=== PATIENT | female | born 1955 | race Caucasian/White ===

== ENCOUNTER 2017-05-30 09:39 | Emergency (ER) | payer MEDICARE ==
[~2017-05-30] VITALS: Ht 152.4 cm; Wt 45.0 kg
[~2017-05-30 09:39] MED LIST: AMLO5 PO; CLON1TAB PO; FERR325T PO; FLUD.1 PO; FURO20 PO; IBUP800T23 PO; METH500T3 PO; METO50TA PO; PROZ20CA11 PO
[2017-05-30 09:41] VITALS: BP 129/64; PULSE 80; RESP 20; TEMP 98.3; O2SAT 95
[2017-05-30] MEDS ORDERED: AMLO10TA2 PO (09:56)
[2017-05-30] MEDS ORDERED: PROZ40CA PO (09:56)
[2017-05-30] MEDS ORDERED: CLON1TAB PO (09:56)
[2017-05-30] MEDS ORDERED: METO50TA11 PO (09:56)
[2017-05-30] MEDS ORDERED: MORPHINE SULFATE 4 MG/ML INJ IV PUSH ONE (10:00)
[2017-05-30] MEDS ORDERED: SODIUM CHLORID 0.9% 500 ML INJ 500 ML IV ONE (10:00)
[2017-05-30] MEDS ORDERED: ONDANSETRON HCL 4 MG/2 ML VIAL IV PUSH ONE (10:00)
--- NOTE | 2017-05-30 10:07 | PD ---
HPI Chief Complaint: Fall Time Seen by Provider: 09:55 Travel History International Travel<30 days: No Contact w/Intl Traveler<30days: No Traveled to known affect area: No History of Present Illness HPI The patient is a 61-year-old female who presents emergency department for headache after fall. The patient has a history of vertigo and was taking a bath yesterday when she became dizzy and fell backwards, striking her head on the porcelain toilet. The patient states there was no loss of consciousness. She denies any nausea or vomiting. She does complain of a posterior headache. She denies any neck pain or back pain. She denies any focal deficits. She denies any change in vision. The patient denies taking any anticoagulants. Symptoms are mild to moderate, exacerbated after falling, and there are no current alleviating factors. PFSH Past Medical History Hx Anticoagulant Therapy: No Asthma: No Blood Disorders: Yes (ANEMIA) Anxiety: Yes Depression: Yes Heart Rhythm Problems: Yes (FLUTTERING IN CHEST) Cardiovascular Problems: Yes High Cholesterol: No Chemotherapy: No Chest Pain: No Congestive Heart Failure: No COPD: No Cerebrovascular Accident: No Diabetes: No Diminished Hearing: No Endocrine: No Gastrointestinal Disorders: Yes (ULCER) Genitourinary: Yes (INCONTINENCE) Hypertension: Yes Immune Disorder: No Musculoskeletal: Yes (BULGING DISC L5-S1-LEFT LEG WEAKNESS) Neurologic: Yes (PINCHED NERVE) Psychiatric: Yes Reproductive: No Respiratory: No Radiation Therapy: No Sleep Apnea: No Thyroid Disease: No Ulcer: Yes Tetanus Vaccination: < 5 Years ?: Not Menopausal: Yes Tubal Ligation: Yes Past Surgical History Gynecologic Surgery: Yes (TUBAL) Hysterectomy: Yes Tonsillectomy: Yes Other Surgery: Yes (TUBAL, PARTIAL HYSTER, TONSILLS OUT) Social History Alcohol Use: Yes (OCC) Tobacco Use: No Substance Use: No Allergies-Medications (Allergen,Severity, Reaction): Coded Allergies: No Known Allergies (Unverified , 05/30/17) Reported Meds & Prescriptions Reported Meds & Active Scripts Active Reported Clonazepam 1 Mg Tab 1 Mg PO TID Prozac (Fluoxetine HCl) 40 Mg Cap 40 Mg PO DAILY Amlodipine (Amlodipine Besylate) 10 Mg Tab 10 Mg PO DAILY Metoprolol Succinate ER 24 HR (Metoprolol Succinate) 50 Mg Tab 50 Mg PO DAILY Review of Systems Except as stated in HPI: all other systems reviewed are Neg General / Constitutional: No: Fever Eyes: No: Diploplia, Blurred Vision, Photophobia, Visual changes HENT: Positive: Headaches, No: Neck Pain Neurologic: Positive: Headache, No: Focal Abnormalities, Change in Mentation Physical Exam Narrative GENERAL: Awake, alert, nontoxic-appearing 61-year-old female who appears her stated age and is in no acute respiratory distress. SKIN: Focused skin assessment warm/dry. HEAD: Atraumatic. Normocephalic. No visible cephalohematoma EYES: Pupils equal and round. 4 mm bilateral and reactive. EOMs are intact. Patient is able to see fingers at a distance of 2 feet without difficulty. ENT: No nasal bleeding or discharge. Mucous membranes pink and moist. NECK: Trachea midline. No JVD. No tenderness of the cervical vertebrae. Full range of motion with flexion, extension, and rotation. GASTROINTESTINAL: Abdomen soft, non-tender, nondistended. Back: No tenderness over the thoracic or lumbar vertebrae. MUSCULOSKELETAL: No obvious deformities. No clubbing. No cyanosis. No edema. NEUROLOGICAL: Awake and alert. No obvious cranial nerve deficits. Motor grossly within normal limits. Normal speech. Nonfocal. Oriented 4. Follows commands without difficulty. PSYCHIATRIC: Appropriate mood and affect; insight and judgment normal. Data Data Last Documented VS Vital Signs Date Time Temp Pulse Resp B/P (MAP) Pulse Ox O2 Delivery O2 Flow Rate FiO2 05/30/17 10:10 71 17 134/68 (90) 98 Room Air 05/30/17 09:[address] Brain W/O Iv Contrast(Rout) (05/30/17 ) Morphine Inj (Morphine Inj) (05/30/17 10:00) Ondansetron Inj (Zofran Inj) (05/30/17 10:00) Sodium Chlorid 0.9% 500 Ml Inj (Ns 500 M (05/30/17 10:00) MDM Medical Decision Making Medical Screen Exam Complete: Yes Emergency Medical Condition: Yes Medical Record Reviewed: Yes Interpretation(s) Last Impressions Head CT 05/30/17 0000 Signed Impressions: Service Date/Time: Tuesday, May 30, 2017 10:31 - CONCLUSION: No acute disease. Justus Yusuf MD Differential Diagnosis Differential diagnosis includes closed head injury, skull fracture, intracranial hemorrhage, subarachnoid hemorrhage, tension headache, hematoma, concussion. Narrative Course IV was established and the patient was placed on cardiac telemetry monitoring and continuous pulse oximetry monitoring. 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 Noncontrast CT the brain was obtained. CT of the brain was negative. The patient was reassessed, her headache had improved. She is requesting pain medications at discharge, but states she does not want NSAIDs as they upset her stomach. The patient is stable for outpatient follow-up. Diagnosis Primary Impression: Closed head injury Qualified Codes: S09.90XA - Unspecified injury of head, initial encounter Patient Instructions: General Instructions Additional Instructions: Please provide the patient a copy of her CT results at discharge. Follow-up with her primary physician. Medications as directed. Return if symptoms worsen or progress. Med/Other Pt SpecificInfo: Prescription(s) given Scripts Ecjjgwucub-Enbwwgynjvmtw-Qfzdawjd (Fioricet) 50-300-40 Mg Cap 1 CAP PO Q4H Y for HEADACHE, #10 CAP 0 Refills Prov: Rodolfo Rebolledo MD 05/30/17 Disposition: 01 DISCHARGE HOME Condition: Stable Rodolfo Rebolledo MD May 30, 2017 10:07
[2017-05-30 10:10] VITALS: BP 134/68; PULSE 71; RESP 17; O2SAT 98
--- NOTE | 2017-05-30 10:44 | RADRPT ---
EXAM DATE/TIME: 05/30/2017 10:31 [facility] COMPARISON: CT BRAIN W/O CONTRAST, June 08, 2016, 16:08. INDICATIONS : Patient fell and hit back of head this morning RADIATION DOSE: 27.42 CTDIvol (mGy) MEDICAL HISTORY : Cardiovascular disease. SURGICAL HISTORY : Hysterectomy. ENCOUNTER: Initial ACUITY: 1 day PAIN SCALE: 9/10 LOCATION: occipital TECHNIQUE: Multiple contiguous axial images were obtained of the head. Using automated exposure control and adj ustment of the mA and/or kV according to patient size, radiation dose was kept as low as reasonably a chievable to obtain optimal diagnostic quality images. DICOM format image data is available electro nically for review and comparison. FINDINGS: CEREBRUM: The ventricles are normal for age. No evidence of midline shift, mass lesion, hemorrhage or acute in farction. No extra-axial fluid collections are seen. POSTERIOR FOSSA: The cerebellum and brainstem are intact. The 4th ventricle is midline. The cerebellopontine angle i s unremarkable. EXTRACRANIAL: The visualized portion of the orbits is intact. SKULL: The calvaria is intact. No evidence of skull fracture. CONCLUSION: No acute disease. Justus Yusuf MD on May 30, 2017 at 10:42 Board Certified Radiologist. This report was verified electronically.
[2017-05-30] MEDS ORDERED: BUTA1CAP PO (11:40)
--- NOTE | 2017-05-31 12:52 | EKG ---
Date Performed: 05/30/2017 Time Performed: 18:24:35 PTAGE: 61 years EKG: Sinus rhythm NORMAL ECG NO PREVIOUS TRACING DOCTOR: Sanford Vizcarra Interpretating Date/Time 05/31/2017 12:47:33
== END 2017-05-30 11:50 | disposition home or self-care (01) ==
LOC: NEPD 09:39
DX: S09.90XA Unspecified injury of head, initial encounter (principal); R42 Dizziness and giddiness; D64.9 Anemia, unspecified; F41.9 Anxiety disorder, unspecified; F32.9 Major depressive disorder, single episode, unspecified; I10 Essential (primary) hypertension; W22.8XXA Striking against or struck by other objects, initial encounter; Z79.899 Other long term (current) drug therapy
CPT/HCPCS: 70450; 93005; 96374; 96375; 99285; J2270; J2405; J7040

== ENCOUNTER 2018-03-01 18:51 | Emergency (ER) | payer MEDICARE ==
[~2018-03-01 18:51] MED LIST changes: +AMLO10TA2 PO; -AMLO5 PO; +BUTA1CAP PO; -FERR325T PO; -FLUD.1 PO; -FURO20 PO; -IBUP800T23 PO; -METH500T3 PO; +METO1TAB9 PO; -METO50TA PO; -PROZ20CA11 PO; +PROZ40CA PO
[2018-03-01 19:19] VITALS: BP 122/70; PULSE 59; RESP 16; TEMP 98.3; O2SAT 100
--- NOTE | 2018-03-01 19:43 | PD ---
HPI Chief Complaint: Medical Clearance Time Seen by Provider: 19:27 Travel History International Travel<30 days: No Contact w/Intl Traveler<30days: No Traveled to known affect area: No History of Present Illness HPI 62-year-old female with history of CAD, hypertension, vertigo, anxiety, depression, presents emergency department for evaluation of multiple complaints. Patient states that she has gained 20 pounds over the last 3 months. She tells me her abdomen is more distended than usual. She tells me that she has a burn on her right breast from spilling boiling water on it 2 days ago. She denies any significant pain. She denies any nausea or vomiting. She tells me that she has had diarrhea "for months" that had resolved but then began again today. She tells me that her primary care provider is Dr. Zimmerman and he advised she come to the emergency department when she contacted the office. She would like her lab work checked and to make sure that she is "okay." PFSH Past Medical History Hx Anticoagulant Therapy: No Asthma: No Blood Disorders: Yes (ANEMIA) Anxiety: Yes Depression: Yes Heart Rhythm Problems: Yes (FLUTTERING IN CHEST) Cardiovascular Problems: Yes High Cholesterol: No Chemotherapy: No Chest Pain: No Congestive Heart Failure: No COPD: No Cerebrovascular Accident: No Diabetes: No Diminished Hearing: No Endocrine: No Gastrointestinal Disorders: Yes (ULCER) Genitourinary: Yes (INCONTINENCE) Hypertension: Yes Immune Disorder: No Musculoskeletal: Yes (BULGING DISC L5-S1-LEFT LEG WEAKNESS) Neurologic: Yes (PINCHED NERVE) Psychiatric: Yes Reproductive: No Respiratory: No Radiation Therapy: No Sleep Apnea: No Thyroid Disease: No Ulcer: Yes ?: Not Menopausal: Yes Tubal Ligation: Yes Past Surgical History Gynecologic Surgery: Yes (TUBAL) Hysterectomy: Yes Tonsillectomy: Yes Other Surgery: Yes (TUBAL, PARTIAL HYSTER, TONSILLS OUT) Social History Alcohol Use: Yes (OCC) Tobacco Use: No Substance Use: No Allergies-Medications (Allergen,Severity, Reaction): Coded Allergies: No Known Allergies (Unverified Adverse Reaction, Unknown, 03/01/18) Reported Meds & Prescriptions Reported Meds & Active Scripts Active Fioricet (Nwpyxlxtgt-Vmyzaojghlirb-Lovheoyv) 50-300-40 Mg Cap 1 Cap PO Q4H PRN Reported Clonazepam 1 Mg Tab 1 Mg PO TID Prozac (Fluoxetine HCl) 40 Mg Cap 40 Mg PO DAILY Amlodipine (Amlodipine Besylate) 10 Mg Tab 10 Mg PO DAILY Metoprolol Succinate ER 24 HR (Metoprolol Succinate) 50 Mg Tab 50 Mg PO DAILY Review of Systems Except as stated in HPI: all other systems reviewed are Neg Physical Exam Narrative GENERAL: Well-nourished female patient, ambulatory, with bizarre affect, but in no acute distress SKIN: Focused skin assessment warm/dry. There is a 5 cm x 3 cm irregularly shaped partial thickness burn on the right breast with blister formation. No significant erythema or edema. HEAD: Atraumatic. Normocephalic. EYES: Pupils equal and round. No scleral icterus. No injection or drainage. ENT: No nasal bleeding or discharge. Mucous membranes pink and moist. NECK: Trachea midline. No JVD. CARDIOVASCULAR: Regular rate and rhythm. 2/6 systolic murmur. RESPIRATORY: No accessory muscle use. Clear to auscultation. Breath sounds equal bilaterally. GASTROINTESTINAL: Abdomen rotund, soft, nontender. No guarding or rebound tenderness. Hepatic and splenic margins not palpable. MUSCULOSKELETAL: No obvious deformities. No clubbing. No cyanosis. No edema. NEUROLOGICAL: Awake and alert. No obvious cranial nerve deficits. Motor grossly within normal limits. Normal speech. Data Data Last Documented VS Vital Signs Date Time Temp Pulse Resp B/P (MAP) Pulse Ox O2 Delivery O2 Flow Rate FiO2 03/01/18 19:19 98.3 59 16 122/70 (87) 100 Orders Orders Complete Blood Count With Diff (03/01/18 19:41) Comprehensive Metabolic Panel (03/01/18 19:41) Urinalysis - C+S If Indicated (03/01/18 19:41) Iv Access Insert/Monitor (03/01/18 19:41) Ecg Monitoring (03/01/18 19:41) Oximetry (03/01/18 19:41) Sodium Chloride 0.9% Flush (Ns Flush) (03/01/18 19:45) Us Abdomen Complete (03/01/18 ) Ct Brain W/O Iv Contrast(Rout) (03/01/18 ) Ibuprofen (Motrin) (03/01/18 21:30) Meclizine (Antivert) (03/01/18 21:30) Ed Discharge Order (03/02/18 00:16) Labs Laboratory Tests Test 03/01/18 19:56 White Blood Count 6.8 TH/MM3 Red Blood Count 4.23 MIL/MM3 Hemoglobin 13.2 GM/DL Hematocrit 40.1 % Mean Corpuscular Volume 94.8 FL Mean Corpuscular Hemoglobin 31.1 PG Mean Corpuscular Hemoglobin Concent 32.8 % Red Cell Distribution Width 12.8 % Platelet Count 260 TH/MM3 Mean Platelet Volume 8.8 FL Neutrophils (%) (Auto) 53.2 % Lymphocytes (%) (Auto) 24.4 % Monocytes (%) (Auto) 17.6 % Eosinophils (%) (Auto) 4.1 % Basophils (%) (Auto) 0.7 % Neutrophils # (Auto) 3.6 TH/MM3 Lymphocytes # (Auto) 1.7 TH/MM3 Monocytes # (Auto) 1.2 TH/MM3 Eosinophils # (Auto) 0.3 TH/MM3 Basophils # (Auto) 0.0 TH/MM3 CBC Comment DIFF FINAL Differential Comment Urine Color LIGHT-YELLOW Urine Turbidity CLEAR Urine pH 6.5 Urine Specific [place] 1.003 Urine Protein NEG mg/dL Urine Glucose (UA) NEG mg/dL Urine Ketones NEG mg/dL Urine Occult Blood NEG Urine Nitrite NEG Urine Bilirubin NEG Urine Urobilinogen LESS THAN 2.0 MG/DL Urine Leukocyte Esterase NEG Urine RBC LESS THAN 1 /hpf Urine WBC LESS THAN 1 /hpf Urine Squamous Epithelial Cells <1 /hpf Microscopic Urinalysis Comment CULT NOT INDICATED Blood Urea Nitrogen 14 MG/DL Creatinine 1.04 MG/DL Random Glucose 79 MG/DL Total Protein 7.8 GM/DL Albumin 3.5 GM/DL Calcium Level 8.6 MG/DL Alkaline Phosphatase 106 U/L Aspartate Amino Transf (AST/SGOT) 116 U/L Alanine Aminotransferase (ALT/SGPT) 169 U/L Total Bilirubin 0.3 MG/DL Sodium Level 140 MEQ/L Potassium Level 3.9 MEQ/L Chloride Level 105 MEQ/L Carbon Dioxide Level 24.3 MEQ/L Anion Gap 11 MEQ/L Estimat Glomerular Filtration Rate 54 ML/MIN MDM Medical Decision Making Medical Screen Exam Complete: Yes Emergency Medical Condition: Yes Medical Record Reviewed: Yes Differential Diagnosis Normal exam versus mood disorder versus personality disorder versus electrolyte abnormality versus gastroenteritis versus colitis versus ascites Narrative Course 62-year-old female presents emergency department for evaluation of multiple complaints. Patient appears well. She does have a bizarre affect. Basic lab work and ultrasound of the abdomen are ordered. While attempting to void in the bathroom, patient states she began to experience her vertigo which caused her to fall to the ground. She tells me she did strike her head. She was able to ambulate with assistance back to the bed. CT imaging the brain is complete and negative for acute intracranial abnormality. Laboratory Tests Test 03/01/18 19:56 White Blood Count 6.8 TH/MM3 Red Blood Count 4.23 MIL/MM3 Hemoglobin 13.2 GM/DL Hematocrit 40.1 % Mean Corpuscular Volume 94.8 FL Mean Corpuscular Hemoglobin 31.1 PG Mean Corpuscular Hemoglobin Concent 32.8 % Red Cell Distribution Width 12.8 % Platelet Count 260 TH/MM3 Mean Platelet Volume 8.8 FL Neutrophils (%) (Auto) 53.2 % Lymphocytes (%) (Auto) 24.4 % Monocytes (%) (Auto) 17.6 % Eosinophils (%) (Auto) 4.1 % Basophils (%) (Auto) 0.7 % Neutrophils # (Auto) 3.6 TH/MM3 Lymphocytes # (Auto) 1.7 TH/MM3 Monocytes # (Auto) 1.2 TH/MM3 Eosinophils # (Auto) 0.3 TH/MM3 Basophils # (Auto) 0.0 TH/MM3 CBC Comment DIFF FINAL Differential Comment Urine Color LIGHT-YELLOW Urine Turbidity CLEAR Urine pH 6.5 Urine Specific [place] 1.003 Urine Protein NEG mg/dL Urine Glucose (UA) NEG mg/dL Urine Ketones NEG mg/dL Urine Occult Blood NEG Urine Nitrite NEG Urine Bilirubin NEG Urine Urobilinogen LESS THAN 2.0 MG/DL Urine Leukocyte Esterase NEG Urine RBC LESS THAN 1 /hpf Urine WBC LESS THAN 1 /hpf Urine Squamous Epithelial Cells <1 /hpf Microscopic Urinalysis Comment CULT NOT INDICATED Blood Urea Nitrogen 14 MG/DL Creatinine 1.04 MG/DL Random Glucose 79 MG/DL Total Protein 7.8 GM/DL Albumin 3.5 GM/DL Calcium Level 8.6 MG/DL Alkaline Phosphatase 106 U/L Aspartate Amino Transf (AST/SGOT) 116 U/L Alanine Aminotransferase (ALT/SGPT) 169 U/L Total Bilirubin 0.3 MG/DL Sodium Level 140 MEQ/L Potassium Level 3.9 MEQ/L Chloride Level 105 MEQ/L Carbon Dioxide Level 24.3 MEQ/L Anion Gap 11 MEQ/L Estimat Glomerular Filtration Rate 54 ML/MIN Ultrasound is yet to be complete. Patient is signed out to my attending physician who will assume care and disposition appropriately. Condition: Stable Cindi Alegre Mar 01, 2018 19:42
[2018-03-01] MEDS ORDERED: SODIUM CHLORIDE 0.9% FLUSH 10 ML FLUSH IV FLUSH PRN (19:45)
--- NOTE | 2018-03-01 20:38 | RADRPT ---
EXAM DATE: 03/01/2018 8:30 PM EDT AGE/SEX: 62 years / Female INDICATIONS: Trauma; patient has vertigo and caught herself from falling, but hit her head against t he wall. CLINICAL DATA: This is the patient's initial encounter. Patient reports that signs and symptoms have been present for 1 day and indicates a pain score of 4/10. MEDICAL/SURGICAL HISTORY: Cardiovascular disease. Hypertension. Hysterectomy. Tubal ligation. RADIATION DOSE: 56.35 CTDI (mGy) COMPARISON: [facility] [place] BRAIN W/O CONTRAST, 05/30/2017. . TECHNIQUE: CT of the head without contrast. Using automated exposure control and adjustment of the mA and/or kV according to patient size, radiation dose was kept as low as reasonably achievable to ob tain optimal diagnostic quality images. FINDINGS: Cerebrum: The ventricles and cortical sulci are mildly dilated. There are scattered areas of low den sity seen in the cerebral white matter. No evidence of midline shift, mass lesion, hemorrhage or acut e infarction. No extraaxial fluid collections are seen. Posterior Fossa: The cerebellum and brainstem are intact. The 4th ventricle is midline. The cerebe llopontine angle is unremarkable. Extracranial: The visualized portion of the orbits is intact. There is left maxillary sinus disease. There appears to be mild soft tissue swelling at the superior left frontal scalp region. Skull: The calvaria is intact. No evidence of skull fracture. CONCLUSION: 1. No acute intracranial abnormality is seen. 2. Scattered low density in the cerebral white matter likely secondary to demyelination. This is non specific. It could be secondary to small vessel ischemic change. 3. Left maxillary sinus disease. 4. Possible mild soft tissue swelling at the superior left frontal scalp region. Electronically signed by: Johnie Bailon MD 03/01/2018 8:37 PM EDT
[2018-03-01 20:40] LABS: AUTOMATED NEUTROPHIL # 3.6 TH/MM3 (1.8-7.7); BASOPHIL % 0.7 % (0.0-2.0); EOSINOPHIL # 0.3 TH/MM3 (0-0.4); EOSINOPHIL % 4.1 % (0.0-4.0); HEMATOCRIT 40.1 % (35.0-46.0); HEMOGLOBIN 13.2 GM/DL (11.6-15.3); LYMPH % 24.4 % (9.0-44.0); LYMPHOCYTE # 1.7 TH/MM3 (1.0-4.8); MEAN CELL VOLUME 94.8 FL (80.0-100.0); MEAN CORPUSCULAR HEMOGLOBIN 31.1 PG (27.0-34.0); MEAN CORPUSCULAR HGB CONC 32.8 % (32.0-36.0); MEAN PLATELET VOLUME 8.8 FL (7.0-11.0); MONO % 17.6 % (0.0-8.0); MONOCYTE # 1.2 TH/MM3 (0-0.9); NEUT % 53.2 % (16.0-70.0); PLATELET COUNT 260 TH/MM3 (150-450); RED BLOOD COUNT 4.23 MIL/MM3 (4.00-5.30); RED CELL DISTRIBUTION WIDTH 12.8 % (11.6-17.2); WHITE BLOOD COUNT 6.8 TH/MM3 (4.0-11.0)
[2018-03-01 20:52] LABS: ALBUMIN 3.5 GM/DL (3.4-5.0); AST (GOT) 116 U/L (15-37); BICARBONATE 24.3 MEQ/L (21.0-32.0); BLOOD UREA NITROGEN 14 MG/DL (7-18); CALCIUM 8.6 MG/DL (8.5-10.1); CHLORIDE 105 MEQ/L (98-107); CREATININE 1.04 MG/DL (0.50-1.00); GLOMERULAR FILTRATION RATE 54 ML/MIN (>89); GLUCOSE,RANDOM 79 MG/DL (74-106); SODIUM (NA) 140 MEQ/L (136-145)
[2018-03-01 20:53] LABS: ALT (GPT) 169 U/L (10-53)
[2018-03-01 20:57] LABS: ALKALINE PHOSPHATASE 106 U/L (45-117); TOTAL BILIRUBIN ADULT 0.3 MG/DL (0.2-1.0); TOTAL PROTEIN 7.8 GM/DL (6.4-8.2)
[2018-03-01 21:22] LABS: BILIRUBIN, URINE NEG (NEG); BLOOD, URINE NEG (NEG); GLUCOSE,URINE NEG (NEG); KETONE, URINE NEG (NEG); NITRITE,URINE NEG (NEG); PH, URINE 6.5 (5.0-8.5); SQUAMOUS EPITHELIAL CELL URINE <1 /hpf (0-5); URINE COLOR LIGHT-YELLOW (YELLW/STRAW); URINE LEUKOCYTE ESTERASE NEG (NEG)
[2018-03-01] MEDS ORDERED: IBUPROFEN 600 MG TAB PO ONE (21:30)
[2018-03-01] MEDS ORDERED: MECLIZINE HCL 25 MG TAB PO ONE (21:30)
--- NOTE | 2018-03-01 23:07 | RADRPT ---
EXAM DATE: 03/01/2018 10:43 PM EDT AGE/SEX: 62 years / Female INDICATIONS: Abdominal pain and distention. CLINICAL DATA: This is the patient's initial encounter. Patient reports that signs and symptoms have been present for 1 month and indicates a pain score of 4/10. MEDICAL/SURGICAL HISTORY: Anemia. Hypertension. Herniated discs in lumbar spine. Urinary inco ntinence. Tonsillectomy. Hysterectomy. COMPARISON: No prior exams available for comparison. MEASUREMENTS: Liver:__ 13.8 cm. Common Bile Duct:___ 7mm. Right Kidney:___8.3 x 3.9 x 3.9 cm . Left Kidney:___5.6 x 3.8 x 4.8 cm . Spleen:___8.8 . Aorta: The proximal portion measures 2.1 cm maximal. FINDINGS: Liver: Normal echotexture without focal lesion or ductal dilatation. Portal Vein: Hepatopedal flow seen in portal vein. Common Duct: No intraluminal mass or stone visualized. The common bile duct is upper limits of tom l for the patient's age at 7 mm. Gallbladder: Demonstrates no wall thickening or pericholecystic fluid. No stones visualized. Pancreas: The visualized portions are within normal limits Right Kidney: No mass or hydronephrosis Left Kidney: No mass or hydronephrosis. Ascites: None Pleural Effusion: None Spleen: No focal lesion. Aorta: Non aneurysmal. IVC: Within normal limits CONCLUSION: Negative abdominal ultrasound examination. Electronically signed by: Johnie Bailon MD 03/01/2018 11:06 PM EDT
--- NOTE | 2018-03-02 00:01 | PD ---
Physical Exam Date Seen by Provider: Mar 01, 2018 Time Seen by Provider: 23:58 Narrative Patient signed out to me at 11:00 to follow-up ultrasound to assure that there is no abdominal issue with her pain she is discharged home ultrasound is normal Dr. Bryant is her doctor she will call him on Sunday patient agrees with the plan given a cab voucher discharge back to assisted living Data Data Last Documented VS Vital Signs Date Time Temp Pulse Resp B/P (MAP) Pulse Ox O2 Delivery O2 Flow Rate FiO2 03/01/18 19:19 98.3 59 16 122/70 (87) 100 Orders Orders Complete Blood Count With Diff (03/01/18 19:41) Comprehensive Metabolic Panel (03/01/18 19:41) Urinalysis - C+S If Indicated (03/01/18 19:41) Iv Access Insert/Monitor (03/01/18 19:41) Ecg Monitoring (03/01/18 19:41) Oximetry (03/01/18 19:41) Sodium Chloride 0.9% Flush (Ns Flush) (03/01/18 19:45) Us Abdomen Complete (03/01/18 ) Ct Brain W/O Iv Contrast(Rout) (03/01/18 ) Ibuprofen (Motrin) (03/01/18 21:30) Meclizine (Antivert) (03/01/18 21:30) Labs Laboratory Tests Test 03/01/18 19:56 White Blood Count 6.8 TH/MM3 Red Blood Count 4.23 MIL/MM3 Hemoglobin 13.2 GM/DL Hematocrit 40.1 % Mean Corpuscular Volume 94.8 FL Mean Corpuscular Hemoglobin 31.1 PG Mean Corpuscular Hemoglobin Concent 32.8 % Red Cell Distribution Width 12.8 % Platelet Count 260 TH/MM3 Mean Platelet Volume 8.8 FL Neutrophils (%) (Auto) 53.2 % Lymphocytes (%) (Auto) 24.4 % Monocytes (%) (Auto) 17.6 % Eosinophils (%) (Auto) 4.1 % Basophils (%) (Auto) 0.7 % Neutrophils # (Auto) 3.6 TH/MM3 Lymphocytes # (Auto) 1.7 TH/MM3 Monocytes # (Auto) 1.2 TH/MM3 Eosinophils # (Auto) 0.3 TH/MM3 Basophils # (Auto) 0.0 TH/MM3 CBC Comment DIFF FINAL Differential Comment Urine Color LIGHT-YELLOW Urine Turbidity CLEAR Urine pH 6.5 Urine Specific [place] 1.003 Urine Protein NEG mg/dL Urine Glucose (UA) NEG mg/dL Urine Ketones NEG mg/dL Urine Occult Blood NEG Urine Nitrite NEG Urine Bilirubin NEG Urine Urobilinogen LESS THAN 2.0 MG/DL Urine Leukocyte Esterase NEG Urine RBC LESS THAN 1 /hpf Urine WBC LESS THAN 1 /hpf Urine Squamous Epithelial Cells <1 /hpf Microscopic Urinalysis Comment CULT NOT INDICATED Blood Urea Nitrogen 14 MG/DL Creatinine 1.04 MG/DL Random Glucose 79 MG/DL Total Protein 7.8 GM/DL Albumin 3.5 GM/DL Calcium Level 8.6 MG/DL Alkaline Phosphatase 106 U/L Aspartate Amino Transf (AST/SGOT) 116 U/L Alanine Aminotransferase (ALT/SGPT) 169 U/L Total Bilirubin 0.3 MG/DL Sodium Level 140 MEQ/L Potassium Level 3.9 MEQ/L Chloride Level 105 MEQ/L Carbon Dioxide Level 24.3 MEQ/L Anion Gap 11 MEQ/L Estimat Glomerular Filtration Rate 54 ML/MIN [facility] Supervised Visit with CARLOS: Yes Diagnosis Primary Impression: Abdominal pain Qualified Codes: R10.9 - Unspecified abdominal pain Patient Instructions: Abdominal Pain (ED), General Instructions Additional Instruction: Call your doctor Sunday follow-up as an outpatient if the pain gets worse he may return to the ER otherwise follow with Dr. Bryant on Sunday Disposition: 01 DISCHARGE HOME Condition: Power Gonzales MD Mar 02, 2018 00:01
== END 2018-03-02 00:25 | disposition home or self-care (01) ==
LOC: NEPE 18:51
DX: R10.9 Unspecified abdominal pain (principal); I10 Essential (primary) hypertension
CPT/HCPCS: 70450; 76700; 80053; 81001; 85025; 99285